=== PATIENT | female | born 1990 | race African-American/Black ===

== ENCOUNTER → 2018-10-19 | Outpatient (CLI) | payer OTHER ==
--- NOTE | 2018-10-19 16:58 | KCIC ---
MRI Brain without contrast History: New onset headaches and visual changes, blurred left eye vision, dizziness Technique: Multiplanar, multisequential noncontrast MR imaging was performed of the brain. Contrast: None Comparison: None Findings: There is no evidence of recent infarct or cytotoxic edema. The ventricles, sulci, and cisterns are within normal limits in size and configuration. There is no significant midline shift, intraaxial mass effect, or focal abnormal extra-axial fluid collection. There is no significant signal abnormality of the brain parenchyma. There is preservation of the major intracranial flow-voids at the skull base. The mastoid air cells are aerated. The cerebellar tonsils are normal in location. There is no significant abnormality of the pineal gland or pituitary gland. There is patchy overall mild bilateral ethmoid air cell mucosal thickening, also minimally of the bilateral maxillary sinuses. There is preserved marrow signal of the clivus. Impression: 1. There is no significant intracranial abnormality. Electronically signed by: Rafael Mccollum MD (10/19/2018 4:55 PM) [id number]
== END | disposition home or self-care (01) ==
LOC: KCIC MRI 15:48
PROVIDERS: ATTEND Family Medicine Sports Medicine
DX: R51 Headache (principal); H53.8 Other visual disturbances; R42 Dizziness and giddiness
CPT/HCPCS: 70551